=== PATIENT | male | born 1970 | race Two or more races ===

== ENCOUNTER 2025-10-05 07:04 | Inpatient (IN) | payer MEDICAID, OTHER ==
[~2025-10-05] VITALS: Ht 162.6 cm; Wt 81.1 kg
--- NOTE | 2025-10-05 07:37 | ED.PDOC ---
GI ASSESSMENT HPI Comments 54 year old male presents to the ED with a chief compliant of abdominal pain onset 1 day. Patient states he has been experiencing epigastric pain for the past day as well as nausea. Patient had dental implants placed 8 days ago, since then has only been eating soups, bland meals. He took Tylenol for pain yesterday with no improvement of symptoms. Last bowel movement was yesterday around noon. Denies diarrhea, constipation, fever, chills, dysuria, hematuria, hematemesis, fatigue, headache, melena, blood in stool. No other symptoms or modfiyng factors present at this ti Chief Complaint: Abdominal Pain Time Seen by MD: 07:30 Reviewed Notes: Medications, Allergies Allergies: Coded Allergies: NO KNOWN ALLERGIES (Unverified , 10/05/25) Information Source: Patient, Spouse Mode of Arrival: Ambulatory Timing: Days Duration: Since onset Prehospital treatment: Pain Meds (Tylenol) Quality: Sharp Vomitus: None Severity: Moderate Recent: Other (dental work 8 days ago) Recent Hx of: None Pain Location: Epigastric Modifying Factors: Nothing Associated sign and symptoms: Nausea, Abdominal Pain Past Medical History PAST MEDICAL HISTORY: Denies Surgical History: Denies all surgeries Family History Family History: Reviewed,noncontributory to illness, No family hx of Cancer, No family hx of DM, No family hx of Heart farooq, No family hx of HTN, No family hx ofKidney farooq, No family hx of Liver farooq, No family hx of Lung farooq, No family hx of Stroke Social History Smoker: Non-Smoker Alcohol: Denies ETOH Use Drugs: Denies Drug Use Lives In: Home Constitutional: denies: chills, diaphoresis, fatigue, fever, malaise, sweats, weakness, others EENTM: denies: blurred vision, double vision, ear bleeding, ear discharge, ear drainage, ear pain, ear ringing, eye pain, eye redness, hearing loss, mouth pain, mouth swelling, nasal discharge, nose bleeding, nose congestion, nose pain, photophobia, tearing, throat pain, throat swelling, voice changes, others Respiratory: denies: cough, hemoptysis, orthopnea, SOB at rest, shortness of breath, SOB with excertion, stridor, wheezing, others Cardiovascular: denies: chest pain, dizzy spells, diaphoresis, Dyspnea on exertion, edema, irregular heart beat, left arm pain, lightheadedness, palpitations, PND, syncope, others Gastrointestinal: reports: abdominal pain, nausea; denies: abdomen distended, blood streaked bowels, constipated, diarrhea, dysphagia, difficulty swallowing, hematemesis, melena, poor appetite, poor fluid intake, rectal bleeding, rectal pain, vomiting, others Genitourinary: denies: burning, dysuria, flank pain, frequency, hematuria, incontinence, penile discharge, penile sore, pain, testicle pain, testicle swelling, urgency, others Neurological: denies: dizziness, fainting, headache, left sided numbness, left sided weakness, numbness, paresthesia, pre-existing deficit, right sided numbness, right sided weakness, seizure, speech problems, tingling, tremors, weakness, others Musculoskeletal: denies: back pain, gout, joint pain, joint swelling, muscle pain, muscle stiffness, neck pain, others Integumetry: denies: bruises, change in color, change in hair/nails, dryness, laceration, lesions, lumps, rash, wounds, others Allergic/Immunocompromised: denies: Difficulty Healing, Frequent Infections, Hives, Itching, others Hematologic/Lymphatic: denies: anemia, blood clots, easy bleeding, easy bruising, swollen glands, others Endocrine: denies: excessive hunger, excessive sweating, excessive thirst, excessive urination, flushing, intolerance to cold, intolerance to heat, unexplained weight gain, unexplained weight loss, others Psychiatric: denies: anxiety, bipolar disorder, depression, hopeless, panic disorder, schizophrenia, sleepless, suicidal, others All Other Systems: Reviewed and Negative Physical Exam General Appearance: Normal, Other (appears uncomfortable) HEENT: Normal ENT Inspection, Pharynx Normal, TMs Normal Neck: Full Range of Motion, Non-Tender, Normal, Normal Inspection Respiratory: Chest Non-Tender, Lungs Clear, No Accessory Muscle Use, No Respiratory Distress, Normal Breath Sounds Cardiovascular: No Edema, No JVD, No Murmur, No Gallop, Normal Peripheral Pulses, Regular Rate/Rhythm Breast Exam: Deferred Gastrointestinal: No Organomegaly, Non Tender, No Pulsatile Mass, Normal Bowel Sounds, Soft Genitalia: Deferred Pelvic: Deferred Rectal: Deferred Extremities: No calf tenderness, Normal capillary refill, Normal inspection, Normal range of motion, Non-tender, No pedal edema Musculoskeletal : Apperance: Normal Neurologic: Alert, 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 Was a procedure done?: No GI differential Dx Differential Diagnosis: Cholecystitis, Gastritis/PUD, Gastroenteritis, Dehydration, Electrolyte Imbalance, Bacterial, Viral X-Ray, Labs, Meds, VS Vital Signs Date Time Temp Pulse Resp B/P (MAP) Pulse Ox O2 Delivery O2 Flow Rate FiO2 10/05/25 08:48 98.0 79 16 140/77 (98) 97 98.0 10/05/25 08:48 Room Air* 0 21 10/05/25 08:42 79 16 140/77 10/05/25 07:06 97.2 91 20 125/77 99 97.2 Lab Test 10/05/25 07:40 Range/Units White Blood Count 18.2 H 4.4-10.8 10^3/uL Red Blood Count 5.08 4.5-5.90 10^6/uL Hemoglobin 16.3 13.5-17.5 g/dL Hematocrit 47.2 41.0-53.0 % Mean Corpuscular Volume 93.0 80.0-100.0 fL Mean Corpuscular Hemoglobin 32.2 H 28.0-32.0 pg Mean Corpuscular Hemoglobin Concent 34.6 32.0-36.0 g/dL Red Cell Distribution Width 12.4 11.8-14.3 % Platelet Count 275 140-450 10^3/uL Mean Platelet Volume 6.7 L 6.9-10.8 fL Neutrophils (%) (Auto) 89.8 H 37.0-80.0 % Lymphocytes (%) (Auto) 4.2 L 10.0-50.0 % Monocytes (%) (Auto) 5.8 0.0-12.0 % Eosinophils (%) (Auto) 0.0 0.0-7.0 % Basophils (%) (Auto) 0.2 0.0-2.0 % Neutrophils # (Auto) 16.4 H 1.6-8.6 10 ^3/uL Lymphocytes # (Auto) 0.8 0.4-5.4 10 ^3/uL Monocytes # (Auto) 1.1 0-1.3 10 ^3/uL Eosinophils # (Auto) 0 0-0.8 10 ^3/uL Basophils # (Auto) 0 0-0.2 10 ^3/uL Nucleated Red Blood Cells 0.0 % Sodium Level 139 136-145 mmol/L Potassium Level 4.2 3.5-5.1 mmol/L Chloride Level 102 98-107 mmol/L Carbon Dioxide Level 26 20-31 mmol/L Anion Gap 11 5-15 Blood Urea Nitrogen 11 9-23 mg/dL Creatinine 1.02 0.700-1.30 mg/dL Glomerular Filtration Rate Calc 88 >90 mL/min BUN/Creatinine Ratio 10.8 10.0-20.0 Serum Glucose 136 H 74-106 mg/dL Calcium Level 9.8 8.7-10.4 mg/dL Total Bilirubin 1.1 H 0.2-1.0 mg/dL Aspartate Amino Transferase (AST) 23 13-40 U/L Alanine Aminotransferase (ALT) 28 7-40 U/L Alkaline Phosphatase 80 46-116 U/L Total Protein 7.9 5.7-8.2 g/dL Albumin 4.8 3.2-4.8 g/dL Lipase 34 12-53 U/L Current Medications Medications (Trade) Dose Ordered Sig/Tao Route Start Time Stop Time Status Last Admin Sodium Chloride 1,000 ml @ 1,000 mls/hr Q1H ONCE IV 10/05/25 07:45 10/05/25 08:44 DC 10/05/25 08:30 Morphine Sulfate 4 mg ONCE ONCE IV 10/05/25 07:45 10/05/25 07:46 DC 10/05/25 08:42 Pantoprazole Sodium (Protonix) 40 mg ONCE ONCE IV 10/05/25 07:45 10/05/25 07:46 DC 10/05/25 08:41 Ondansetron HCl (Zofran) 4 mg ONCE ONCE IV 10/05/25 07:45 10/05/25 07:46 DC 10/05/25 08:[address] [address] Ph: [phone] DIAGNOSTIC IMAGING Diagnostic Imaging Report : [id number] Signed PATIENT: STUART WOOTENACCT: [id number] UNIT: [id number] : 1970 LOC: ER ROOM / BED: / AGE / SEX: 54 / M ADM STATUS: REG ER SERVICE [id number] ORDERING PHYSICIAN: MICHAELA KINNEY MD PROCEDURE(s): ABPLIV - CT AB PEL WITH IV CON ONLY REASON: abdominal pain ORDER NUMBER(s): [id number], ACCESSION NUMBER(s): [id number] CLINICAL INFORMATION: 54 years old, Male; abdominal pain. TECHNIQUE: Axial CT images of the abdomen and pelvis were obtained after the uneventful administration of 100 mL Omnipaque 300 IV contrast. Coronal and sagittal reformatted images were obtained, reviewed, and stored. All CT scans at this medical facility are performed using dose modulation techniques as appropriate to a performed exam including the following: Automated exposure control was utilized; adjustment of the MA and/or KV according to patient size; and use of iterative reconstruction technique. CTDIvol = 8.39 mGy DLP = 525.65 mGy-cm COMPARISON: None FINDINGS: Lung bases: Respiratory motion artifact limits evaluation. Atelectasis in the lung bases. Liver: Hepatic steatosis. Biliary: Gallbladder is distended. No calcified gallstones visualized on CT. Spleen: Unremarkable. Pancreas: Unremarkable. No inflammatory changes, ductal dilatation, or mass identified. Adrenal glands: Unremarkable. No mass. Kidneys: No hydronephrosis or mass. Aorta/Vascular: Scattered atherosclerotic calcification. No abdominal aortic aneurysm. Lymph Nodes: No mass or lymphadenopathy. Bowel/mesentery: No small bowel obstruction. No free air or free fluid. Appendix is visualized and appears unremarkable. Scattered small colonic diverticula without adjacent inflammatory changes to suggest diverticulitis. Pelvic organs: Grossly unremarkable. Bladder: Unremarkable. No mass. Abdominal wall: No mass or hernia. Bones: No acute fracture or focal intraosseous lesion. IMPRESSION: 1. Distended gallbladder. No definite calcified gallstones visualized on CT. Correlate with clinical findings. If clinically indicated, ultrasound could be obtained. 2. Hepatic steatosis. 3. Scattered colonic diverticula without adjacent inflammatory changes to suggest diverticulitis. 4. Additional findings as described above. ATED BY: BE DE LEON DO DICTATED DATE/TIME: 10/05/25936 SIGNED BY: BE DE LEON DO SIGNED DATE/TIME: 10/05/25936 CC: Time of 1ST Reevaluation: 08:00 Reevaluation 1ST: Unchanged Patient Education/Counseling: Diagnosis, Treatment, Prognosis Family Education/Counseling: Diagnosis, Treatment, Prognosis SEPSIS Sepsis Screen Date sepsis recognized/suspect: Oct 05, 2025 Time Sepsis recognized/suspect: 708 Recent Procedure: No On Antibiotic Therapy: No Respiratory Rate >20: No Heart Rate >90: No Temp<36 C (96.8 F) or >38.3 C: No SBP <90 or MAP <65 mmHG: No New Acute Mental Status Change: No Is the patient on CPAP, BIPAP,: No Physician Orders Urinalysis (10/05/25 07:19) Ct Ab Pel With Iv Con Only (10/05/25 07:33) Accucheck (10/05/25 10:07) Lactated Ringer's (10/05/25 10:15) Blood Culture (10/05/25 10:07) Lactic Acid W/ Reflex Order (10/05/25 12:00) Lactic Acid W/ Reflex Order (10/05/25 14:00) Cefepime 1gm/50ml (Maxipime 1gm/50ml) (10/05/25 10:07) Notify Md If Map <65 Or Bp<90 (10/05/25 10:07) If Map<65 Start Vasopressor (10/05/25 10:07) Sepsis Reassesment After Fluid (10/05/25 11:07) Vital Signs Date Time Temp Pulse Resp B/P (MAP) Pulse Ox O2 Delivery O2 Flow Rate FiO2 10/05/25 08:48 98.0 79 16 140/77 (98) 97 98.0 10/05/25 08:48 Room Air* 0 21 10/05/25 08:42 79 16 140/77 10/05/25 07:06 97.2 91 20 125/77 99 97.2 Laboratory Tests Test 10/05/25 07:40 White Blood Count 18.2 10^3/uL (4.4-10.8) H Medications Medications Dose Ordered Sig/Tao Route Start Time Stop Time Status Last Admin Dose Admin Morphine Sulfate 4 mg ONCE ONCE IV 10/05/25 07:45 10/05/25 07:46 DC 10/05/25 08:42 Ondansetron HCl 4 mg ONCE ONCE IV 10/05/25 07:45 10/05/25 07:46 DC 10/05/25 08:42 Pantoprazole Sodium 40 mg ONCE ONCE IV 10/05/25 07:45 10/05/25 07:46 DC 10/05/25 08:41 Sodium Chloride 1,000 ml @ 1,000 mls/hr Q1H ONCE IV 10/05/25 07:45 10/05/25 08:44 DC 10/05/25 08:30 Departure 1 Departure Time of Disposition: 10:17 (Patient presented with abdominal pain that was concerning for possible appendicits, gastritis, cholecystitis, colitis, gastroenteritis, sbo, or orther possible surgical emergency. Data: 1. I ordered and reviewed the result of at least 3 labs including a CBC, BMP, and Urinalysis. 2. I independently interpreted the following tests: CT Abdomen and Pelvis is concerning for acute cholecystitis .Risk:This patient has a high risk of morbidity due to further diagnostic testing or treatment and may suffer from an acute abdominal process disorder. Workup reveals a suspected sepsis and suspected acute cholecystitis and patient should be admitted for further workup. and possible expert consultation. ) Impression: Primary Impression: Suspected sepsis Additional Impression: Cholecystitis Disposition: ADMITTED INPATIENT Admit to: Tele Condition: Guarded Critical Care Note Critical Care Time?: Yes Critical care comment: Suspected sepsis Authorized and Performed by: Michaela Kinney MD Total critical care time: Approximately 39 minutes Due to a high probability of clinically significant, life threatening deterioration, the patient required my highest level of preparedness to interv willy emergently and I personally spent this critical care time directly and personally managing the patient. This critical care time included obtaining a history; examining the patient; pulse oximetry; ordering and review of studies; arranging urgent treatment with development of a management plan; evaluation of patient's response to treatment; frequent reassessment; and, discussions with other providers. This critical care time was performed to assess and manage the high probability of imminent, life-threatening deterioration that could result in multi-organ failure. It was exclusive of separately billable procedures and treating other patients and teaching time. Please see my other sections and the rest of the note for further information on patient assessment and treatment. Stability Stability form required: No Heart Score Heart Score: Heart Score Response (Comments) Value History N/A 0 EKG N/A 0 Age N/A 0 Risk Factors N/A 0 Troponin N/A 0 Total 0 I personally scribed for MICHAELA KINNEY MD ([email or web address]) on 10/05/25 at 07:37. Natalia ctronically submitted by Aisha Srivastava ([email or web address]). I personally scribed for MICHAELA KINNEY MD ([email or web address]) on 10/05/25 at 09:48. Electronically submitted by Aisha Srivastava ([email or web address]). MICHAELA KINNEY MD Oct 05, 2025 07:37
[2025-10-05 07:55] LABS: Hematocrit 47.2 % (41.0-53.0); Hemoglobin 16.3 g/dL (13.5-17.5); Mean Corpuscular Hemoglobin 32.2 pg (28.0-32.0); Mean Corpuscular Volume 93.0 fL (80.0-100.0); Nucleated Red Blood Cells % 0.0 %
[2025-10-05 08:12] LABS: Alanine Aminotransferase 28 U/L (7-40); Albumin 4.8 g/dL (3.2-4.8); Alkaline Phosphatase 80 U/L (46-116); Anion Gap 11 (5-15); BUN/Creatinine Ratio 10.8 (10.0-20.0); Bilirubin, Total 1.1 mg/dL (0.2-1.0); Blood Urea Nitrogen 11 mg/dL (9-23); Calcium 9.8 mg/dL (8.7-10.4); Carbon Dioxide 26 mmol/L (20-31); Chloride 102 mmol/L (98-107); Glucose 136 mg/dL (74-106); Potassium 4.2 mmol/L (3.5-5.1); Sodium 139 mmol/L (136-145); Total Protein 7.9 g/dL (5.7-8.2)
[2025-10-05] MEDS: IOHEXOL 300 MG/ML 100ML BOTTLE IJ ONE (08:16)
[2025-10-05] MEDS: SODIUM CHLORIDE 0.9% 1,000 ML IV ONE (08:30)
[2025-10-05] MEDS: PANTOPRAZOLE 40 MG/10 ML VIAL INJ IV ONE (08:41)
[2025-10-05] MEDS: ONDANSETRON HCL 4 MG/2 ML VIAL IV ONE (08:42)
[2025-10-05] MEDS: MORPHINE SULFATE 4 MG/ML SYR/VIAL IV ONE (08:42)
[2025-10-05 09:16] LABS: Lipase 34 U/L (12-53)
--- NOTE | 2025-10-05 09:39 | DVH ---
CLINICAL INFORMATION: 54 years old, Male; abdominal pain. TECHNIQUE: Axial CT images of the abdomen and pelvis were obtained after the uneventful administration of 100 mL Omnipaque 300 IV contrast. Coronal and sagittal reformatted images were obtained, reviewed, and stored. All CT scans at this medical facility are performed using dose modulation techniques as appropriate to a performed exam including the following: Automated exposure control was utilized; adjustment of the MA and/or KV according to patient size; and use of iterative reconstruction technique. CTDIvol = 8.39 mGy DLP = 525.65 mGy-cm COMPARISON: None FINDINGS: Lung bases: Respiratory motion artifact limits evaluation. Atelectasis in the lung bases. Liver: Hepatic steatosis. Biliary: Gallbladder is distended. No calcified gallstones visualized on CT. Spleen: Unremarkable. Pancreas: Unremarkable. No inflammatory changes, ductal dilatation, or mass identified. Adrenal glands: Unremarkable. No mass. Kidneys: No hydronephrosis or mass. Aorta/Vascular: Scattered atherosclerotic calcification. No abdominal aortic aneurysm. Lymph Nodes: No mass or lymphadenopathy. Bowel/mesentery: No small bowel obstruction. No free air or free fluid. Appendix is visualized and appears unremarkable. Scattered small colonic diverticula without adjacent inflammatory changes to suggest diverticulitis. Pelvic organs: Grossly unremarkable. Bladder: Unremarkable. No mass. Abdominal wall: No mass or hernia. Bones: No acute fracture or focal intraosseous lesion. IMPRESSION: 1. Distended gallbladder. No definite calcified gallstones visualized on CT. Correlate with clinical findings. If clinically indicated, ultrasound could be obtained. 2. Hepatic steatosis. 3. Scattered colonic diverticula without adjacent inflammatory changes to suggest diverticulitis. 4. Additional findings as described above.
[2025-10-05] MEDS: LACTATED RINGER'S 1,800 ML IV ONE (10:55)
[2025-10-05] MEDS: CEFEPIME 1GM/50ML 50 ML IV STA (11:35)
--- NOTE | 2025-10-05 11:58 | DVHHP2 ---
History of Present Illness Reason for Visit: Abdominal pain History of Present Illness Bert Schmitt is a 54-year-old male with no significant past medical history, who came to the hospital for abdominal pain. Patient states his pain began yesterday about mid day. States he has had chills, fever, and dizziness. Denies any vomiting, or diarrhea. Past Surgical History: Other (Dental implants 8 dyas ago) Smoke: No ALCOHOL: none Drugs: None Lives: with Family Domestic Violence: Neg Review of Systems Constitutional: Yes: Fever, Chills; No: Sweats, Weakness, Malaise, Other Eyes: No: Pain, Vision change, Conjunctivae inflammation, Eyelid inflammation, Other, Redness ENT: No: Ear pain, Ear discharge, Nose pain, Nose discharge, Nose congestion, Mouth pain, Mouth swelling, Throat pain, Throat swelling, Other Respiratory: No: Cough, Dry, Shortness of breath, SOB with excertion, Wheezing, Hemoptysis, Pleuritic Pain, Sputum, Wheezing, Other Cardiovascular: No: Chest Pain, Palpitations, Orthopnea, Paroxysmal Noc. Dyspnea, Edema, Lt Headedness, Other Gastrointestinal: Nausea, Abdominal Pain (RUQ); No: Vomiting, Diarrhea, Constipation, Melena, Hematochezia, Other Genitourinary: No Dysuria, No Frequency, No Incontinence, No Hematuria, No Retention, No Other Musculoskeletal: No: other, neck pain, shoulder pain, arm pain, back pain, hand pain, leg pain, foot pain Skin: No: Rash, Lesions, Jaundice, Bruising, Other Neurological: No: Weakness, Numbness, Incoordination, Change in speech, Confusion, Seizures, Other Allergies: Coded Allergies: NO KNOWN ALLERGIES (Unverified , 10/05/25) Medications Current Medications Medications Dose Ordered Sig/Tao Route Start Time Stop Time Status Last Admin Dose Admin Cefepime HCl 50 ml @ 12.5 mls/hr ONCE STAT IV 10/05/25 10:07 10/05/25 14:06 10/05/25 11:35 12.5 MLS/HR Sodium Chloride 1,000 ml @ 120 mls/hr Q8H20M IV 10/05/25 11:15 UNV Acetaminophen/ Hydrocodone Bitart 1 tab Q4HP PRN PO 10/05/25 11:15 UNV Ondansetron HCl 4 mg Q4HP PRN IV 10/05/25 11:15 UNV Docusate Sodium 100 mg BID PO 10/05/25 22:00 UNV Acetaminophen 650 mg Q6HP PRN PO 10/05/25 11:15 UNV Morphine Sulfate 2 mg Q4HPRN PRN IV 10/05/25 11:15 UNV Exam Vital Signs Vital Signs Date Time Temp Pulse Resp B/P (MAP) Pulse Ox O2 Delivery O2 Flow Rate FiO2 10/05/25 08:48 98.0 79 16 140/77 (98) 97 98.0 10/05/25 08:48 Room Air* 0 21 General Appearance: Alert, Oriented X3 HEENT: Atraumatic, PERRLA Respiratory: Clear to auscultation, Normal air movement Cardiovascular: Regular rate, Normal S1, Normal S2 Abdominal: Normal bowel sounds, Soft, Other (RUQ tenderness) Extremities: No clubbing, No cyanosis, No edema, Normal pulses, No tenderness/swelling Skin: No rashes, No breakdown, No significant lesion Neuro: Normal gait, Normal speech, Strength at 5/5 X4 ext Psych/Mental Status: Mental status NL, Mood NL Labs/Xrays Labs Test 10/05/25 10:25 10/05/25 07:40 Range/Units Lactic Acid Level 1.0 0.4-2.0 mmol/L White Blood Count 18.2 H 4.4-10.8 10^3/uL Red Blood Count 5.08 4.5-5.90 10^6/uL Hemoglobin 16.3 13.5-17.5 g/dL Hematocrit 47.2 41.0-53.0 % Mean Corpuscular Volume 93.0 80.0-100.0 fL Mean Corpuscular Hemoglobin 32.2 H 28.0-32.0 pg Mean Corpuscular Hemoglobin Concent 34.6 32.0-36.0 g/dL Red Cell Distribution Width 12.4 11.8-14.3 % Platelet Count 275 140-450 10^3/uL Mean Platelet Volume 6.7 L 6.9-10.8 fL Neutrophils (%) (Auto) 89.8 H 37.0-80.0 % Lymphocytes (%) (Auto) 4.2 L 10.0-50.0 % Monocytes (%) (Auto) 5.8 0.0-12.0 % Eosinophils (%) (Auto) 0.0 0.0-7.0 % Basophils (%) (Auto) 0.2 0.0-2.0 % Neutrophils # (Auto) 16.4 H 1.6-8.6 10 ^3/uL Lymphocytes # (Auto) 0.8 0.4-5.4 10 ^3/uL Monocytes # (Auto) 1.1 0-1.3 10 ^3/uL Eosinophils # (Auto) 0 0-0.8 10 ^3/uL Basophils # (Auto) 0 0-0.2 10 ^3/uL Nucleated Red Blood Cells 0.0 % Sodium Level 139 136-145 mmol/L Potassium Level 4.2 3.5-5.1 mmol/L Chloride Level 102 98-107 mmol/L Carbon Dioxide Level 26 20-31 mmol/L Anion Gap 11 5-15 Blood Urea Nitrogen 11 9-23 mg/dL Creatinine 1.02 0.700-1.30 mg/dL Glomerular Filtration Rate Calc 88 >90 mL/min BUN/Creatinine Ratio 10.8 10.0-20.0 Serum Glucose 136 H 74-106 mg/dL Calcium Level 9.8 8.7-10.4 mg/dL Total Bilirubin 1.1 H 0.2-1.0 mg/dL Aspartate Amino Transferase (AST) 23 13-40 U/L Alanine Aminotransferase (ALT) 28 7-40 U/L Alkaline Phosphatase 80 46-116 U/L Total Protein 7.9 5.7-8.2 g/dL Albumin 4.8 3.2-4.8 g/dL Lipase 34 12-53 U/L TECHNIQUE: Axial CT images of the abdomen and pelvis were obtained FINDINGS: Lung bases: Respiratory motion artifact limits evaluation. Atelectasis in the lung bases. Liver: Hepatic steatosis. Biliary: Gallbladder is distended. No calcified gallstones visualized on CT. Spleen: Unremarkable. Pancreas: Unremarkable. No inflammatory changes, ductal dilatation, or mass identified. Adrenal glands: Unremarkable. No mass. Kidneys: No hydronephrosis or mass. Aorta/Vascular: Scattered atherosclerotic calcification. No abdominal aortic aneurysm. Lymph Nodes: No mass or lymphadenopathy. Bowel/mesentery: No small bowel obstruction. No free air or free fluid. Appendix is visualized and appears unremarkable. Scattered small colonic diverticula without adjacent inflammatory changes to suggest diverticulitis. Pelvic organs: Grossly unremarkable. Bladder: Unremarkable. No mass. Abdominal wall: No mass or hernia. Bones: No acute fracture or focal intraosseous lesion. IMPRESSION: 1. Distended gallbladder. No definite calcified gallstones visualized on CT. Correlate with clinical findings. If clinically indicated, ultrasound could be obtained. 2. Hepatic steatosis. 3. Scattered colonic diverticula without adjacent inflammatory changes to suggest diverticulitis. 4. Additional findings as described above. SEPSIS Sepsis Screen Date sepsis recognized/suspect: Oct 05, 2025 Time Sepsis recognized/suspect: 847 Recent Procedure: No On Antibiotic Therapy: No Respiratory Rate >20: No Heart Rate >90: No Temp<36 C (96.8 F) or >38.3 C: No SBP <90 or MAP <65 mmHG: No New Acute Mental Status Change: No Is the patient on CPAP, BIPAP,: No Physician Orders Urinalysis (10/05/25 07:19) Ct Ab Pel With Iv Con Only (10/05/25 07:33) Accucheck (10/05/25 10:07) Blood Culture (10/05/25 10:07) Cefepime 1gm/50ml (Maxipime 1gm/50ml) (10/05/25 10:07) Notify Md If Map <65 Or Bp<90 (10/05/25 10:07) If Map<65 Start Vasopressor (10/05/25 10:07) Sepsis Reassesment After Fluid (10/05/25 11:07) Admit (10/05/25 11:10) Code Status (10/05/25 11:10) Sodium Chloride 0.9% (10/05/25 11:15) Hydrocodone-Acet 5/325mg Tab ([place] 5/32 (10/05/25 11:15) Ondansetron Hcl (Zofran) (10/05/25 11:15) Docusate Sodium Capsule (Colace Capsule) (10/05/25 22:00) Complete Blood Count (10/06/25 04:00) Comprehensive Metabolic Panel (10/06/25 04:00) Npo (Nothing By Mouth) Diet (10/05/25 Lunch) Condition: Serious (10/05/25 11:10) Acetaminophen Tablet (Tylenol Tablet) (10/05/25 11:15) Morphine Sulfate Injection (10/05/25 11:15) Vital Signs Date Time Temp Pulse Resp B/P (MAP) Pulse Ox O2 Delivery O2 Flow Rate FiO2 10/05/25 08:48 98.0 79 16 140/77 (98) 97 98.0 10/05/25 08:48 Room Air* 0 21 10/05/25 08:42 79 16 140/77 10/05/25 07:06 97.2 91 20 125/77 99 97.2 Laboratory Tests Test 10/05/25 07:40 10/05/25 10:25 White Blood Count 18.2 10^3/uL (4.4-10.8) H Lactic Acid Level 1.0 mmol/L (0.4-2.0) Medications Medications Dose Ordered Sig/Tao Route Start Time Stop Time Status Last Admin Dose Admin Cefepime HCl 50 ml @ 12.5 mls/hr ONCE STAT IV 10/05/25 10:07 10/05/25 14:06 10/05/25 11:35 12.5 MLS/HR Lactated Ringer's 1,800 ml @ 1,800 mls/hr ONCE ONCE IV 10/05/25 10:15 10/05/25 11:14 DC 10/05/25 10:55 1,800 MLS/HR Morphine Sulfate 4 mg ONCE ONCE IV 10/05/25 07:45 10/05/25 07:46 DC 10/05/25 08:42 4 MG Ondansetron HCl 4 mg ONCE ONCE IV 10/05/25 07:45 10/05/25 07:46 DC 10/05/25 08:42 4 MG Pantoprazole Sodium 40 mg ONCE ONCE IV 10/05/25 07:45 10/05/25 07:46 DC 10/05/25 08:41 40 MG Sodium Chloride 1,000 ml @ 1,000 mls/hr Q1H ONCE IV 10/05/25 07:45 10/05/25 08:44 DC 10/05/25 08:30 1,000 MLS/HR Assessment/Plan Assessment/Plan Assessment: Cholecystitis, Possible sepsis, Hyperglycemia, Plan: Admit to Med-Surg, Surgical consult, NPO, PT/PTT, Chest X-ray, Gallbladder ultrasound, IV hydration, IV antibiotics, EKG, Pain management, Antiemetics, Plan discussed with: Patient My Orders Orders - IZAIAH COMER Procedure Category Date Status Time Admit ADMIT 10/05/25 Transmitted 11:10 Code Status CODE 10/05/25 Transmitted 11:10 Sodium Chloride 0.9% PHA 10/05/25 Logged 11:15 Hydrocodone-Acet PHA 10/05/25 Logged 5/325mg Tab ([place] 11:15 Ondansetron Hcl PHA 10/05/25 Logged (Zofran) 11:15 Docusate Sodium PHA 10/05/25 Logged Capsule (Colace 22:00 Complete Blood Count LAB 10/06/25 Verified 04:00 Comprehensive LAB 10/06/25 Verified Metabolic Panel 04:00 Npo (Nothing By DIET 10/05/25 Transmitted Mouth) Diet Lunch Condition: Serious MICHAEL 10/05/25 In Process 11:10 Acetaminophen Tablet PHA 10/05/25 Logged (Tylenol Tablet) 11:15 Morphine Sulfate PHA 10/05/25 Logged Injection 11:15 Date of Service: Oct 05, 2025 Billing Provider: IZAIAH COMER Common Visit Codes: [id number] INP/OBS CARE (HIGH) IZAIAH COMER Oct 05, 2025 11:58
--- NOTE | 2025-10-05 12:30 | DVH ---
CHEST RADIOGRAPH Indication: Pre-Op Technique: Single frontal view of the chest was obtained Comparison: None FINDINGS: Lines and Tubes: None Lungs: No focal consolidation. Bibasilar areas of atelectasis or chronic disease. Pleura: No effusion. No pneumothorax. Cardiomediastinal contours: Unremarkable Bones: No acute osseous abnormality. IMPRESSION: 1. Bibasilar areas of atelectasis or chronic pulmonary disease.
[2025-10-05 13:52] LABS: INR 1.06 (0.9-1.15); Partial Thromboplastin Time 26.5 SEC (24.5-34.5); Prothrombin Time 11.2 sec (9.3-11.8)
[2025-10-05] MEDS: SODIUM CHLORIDE 0.9% 1,000 ML IV SCH (13:59)
--- NOTE | 2025-10-05 15:33 | DVH ---
Technique: Real-time ultrasound imaging of the abdomen was performed with grayscale and color Doppler. Indication: acute cholecystitis Comparison: 10/05/2025 Findings: Liver measures 15.2 cm. It is increased in echogenicity and echotexture without focal mass. Portal vein is normal in caliber and demonstrates normal hepatopetal flow. Gallbladder demonstrates distentionm and wall thickening to 4 mm. Cholelithiasis and probable sludge. The common bile duct is nonvisualized. No intrahepatic duct dilatation seen. The right kidney measures 9.5 cm. There is no hydronephrosis or sonographic evidence of nephrolithiasis. The visualized portion of the pancreas is unremarkable. Impression: Gallbladder distention with cholelithiasis and probable sludge as well as gallbladder wall thickening to 4 mm. Findings may reflect cholecystitis. Recommend HIDA scan to evaluate. Echogenic liver which can be seen with hepatic steatosis, cirrhosis. CBD nonvisualized.
[2025-10-05] MEDS: MORPHINE SULFATE INJ 2 MG/ml SYRG IV PRN (16:26)
[2025-10-05] MEDS: ONDANSETRON HCL 4 MG/2 ML VIAL IV PRN (16:26)
[2025-10-05] MEDS: ACETAMINOPHEN 325 MG TAB PO PRN (16:26)
[2025-10-05 18:40] VITALS: BP 143/76; PULSE 103; RESP 18; TEMP 98.4; O2SAT 94
[2025-10-05] MEDS: HYDROcodone-ACET 5/325MG TAB PO PRN (19:46)
[2025-10-05] MEDS ORDERED: IBUP-1455 PO (20:15)
[2025-10-05 21:00] VITALS: BP 148/78; PULSE 94; RESP 19; TEMP 99.4; O2SAT 92
[2025-10-05] MEDS: DOCUSATE SOD 100 MG CAP PO SCH (22:00)
[2025-10-06] VITALS (22 sets, daily range): BP systolic 115–145; BP diastolic 70–89; PULSE 96–117; RESP 12–26; TEMP 97.6–98.5; O2SAT 92–94
[2025-10-06 01:27] LABS: Urine Protein, UAD Negative (Negative)
[2025-10-06 04:08] LABS: Hematocrit 42.9 % (41.0-53.0); Hemoglobin 15.1 g/dL (13.5-17.5); Mean Corpuscular Hemoglobin 32.8 pg (28.0-32.0); Mean Corpuscular Volume 93.5 fL (80.0-100.0); Nucleated Red Blood Cells % 0.0 %
[2025-10-06 04:21] LABS: Alanine Aminotransferase 23 U/L (7-40); Alkaline Phosphatase 78 U/L (46-116); Calcium 9.5 mg/dL (8.7-10.4); Carbon Dioxide 27 mmol/L (20-31); Chloride 103 mmol/L (98-107)
[2025-10-06 04:22] LABS: Albumin 4.3 g/dL (3.2-4.8); Anion Gap 8 (5-15); BUN/Creatinine Ratio 9.8 (10.0-20.0); Potassium 4.1 mmol/L (3.5-5.1); Sodium 138 mmol/L (136-145); Total Protein 7.2 g/dL (5.7-8.2)
[2025-10-06 04:29] LABS: Bilirubin, Total 1.2 mg/dL (0.2-1.0); Blood Urea Nitrogen 8 mg/dL (9-23); Glucose 113 mg/dL (74-106)
[2025-10-06] MEDS: ceFAZolin 2 GM/D5W50ml 50 ML IV ONE (07:07)
--- NOTE | 2025-10-06 07:24 | DVHINCON2 ---
Date of service: Oct 06, 2025 Reason for Consultation right upper quadrant pain, acute cholecystitis History of Present Illness HPI 54-year-old male presented to the ER for abdominal pain. Patient states his pain began 2 days ago epigastric and right upper quadrant. Pain is sharp 10/10 associated with nausea. Home Meds Reported Medications Ibuprofen Micronized (Ibuprofen) 800 Mg Tab, 1 TAB PO Q8HPRN PRN for pain 10/05/25 Chief Complaint of Abdominal/F: Abdominal pain, Nausea Location of Abdominal Onset: RUQ Past Medical History Cardiac: No pertinent Hx Pulmonary: No pertinent Hx Central Nervous System: No pertinent Hx GI: No pertinent Hx Hemotology/Oncology: No pertinent Hx Hepatobiliary: No pertinent Hx Psychiatric: No pertinent Hx Musculoskeletal: No pertinent Hx Rheumotologic: No pertinent Hx Infectious Disease: No peritnent Hx ENT: No pertinent Hx Renal/: No pertinent Hx Endocrine: No pertinent Hx Dermatology: No pertinent Hx Past Surgical History: No pertinent Hx Family History: No pertinent Hx Patient Family History: Hypertension G8 MOTHER Smoker: Positive, Other (stopped two weeks ago ) Alocohol: None (stopped two weeks ago), Occassional Drugs: None Lives with: With family Review of Systems Constitutional: No symptom reported Ears, Nose, & Throat: No symptom reported Eyes: No symptom reported Pulmonary/Respiratory: No symptom reported Cardiovascular: No symptom reported Gastrointestinal: Nausea, Abdominal Pain Genitourinary: No symptom reported Musculoskeletal: No symptom reported Skin: No symptom reported Psychiatric: No symptom reported Endocrine: No symptom reported Hemotologic/Lymphatic: No symptom reported H&P Exam Vital Signs Vital Signs Date Time Temp Pulse Resp B/P (MAP) Pulse Ox O2 Delivery O2 Flow Rate FiO2 10/06/25 05:00 98.5 101 18 139/74 (95) 92 98.5 10/05/25 20:10 Room Air* 0 21 General Appeara: Well developed, Well nourished, Mild distress Head Exam: Normal inspection Neck Exam: Normal inspection Eye Exam: bilateral eye Normal inspection Pulmonary/Respiratory: Normal inspection Cardiovascular/Chest: Normal inspection, Regular rate Abdominal Exam: Normal bowel sounds, Soft Abdominal Pain Onset Location: RUQ Neuro/Mental St: Alert, Oriented Appearance: Appropriate appearance Eye contact/ Speech: Cooperative, Good eye contact Labs/Xrays Labs Test 10/06/25 03:47 10/06/25 00:55 10/05/25 12:58 10/05/25 10:25 Range/Units White Blood Count 29.1 H 4.4-10.8 10^3/uL Red Blood Count 4.59 4.5-5.90 10^6/uL Hemoglobin 15.1 13.5-17.5 g/dL Hematocrit 42.9 41.0-53.0 % Mean Corpuscular Volume 93.5 80.0-100.0 fL Mean Corpuscular Hemoglobin 32.8 H 28.0-32.0 pg Mean Corpuscular Hemoglobin Concent 35.1 32.0-36.0 g/dL Red Cell Distribution Width 12.5 11.8-14.3 % Platelet Count 232 140-450 10^3/uL Mean Platelet Volume 6.9 6.9-10.8 fL Neutrophils (%) (Auto) 90.7 H 37.0-80.0 % Lymphocytes (%) (Auto) 3.4 L 10.0-50.0 % Monocytes (%) (Auto) 5.8 0.0-12.0 % Eosinophils (%) (Auto) 0.0 0.0-7.0 % Basophils (%) (Auto) 0.1 0.0-2.0 % Neutrophils # (Auto) 26.4 H 1.6-8.6 10 ^3/uL Lymphocytes # (Auto) 1.0 0.4-5.4 10 ^3/uL Monocytes # (Auto) 1.7 H 0-1.3 10 ^3/uL Eosinophils # (Auto) 0 0-0.8 10 ^3/uL Basophils # (Auto) 0 0-0.2 10 ^3/uL Nucleated Red Blood Cells 0.0 % Sodium Level 138 136-145 mmol/L Potassium Level 4.1 3.5-5.1 mmol/L Chloride Level 103 98-107 mmol/L Carbon Dioxide Level 27 20-31 mmol/L Anion Gap 8 5-15 Blood Urea Nitrogen 8 L 9-23 mg/dL Creatinine 0.82 0.700-1.30 mg/dL Glomerular Filtration Rate Calc 105 >90 mL/min BUN/Creatinine Ratio 9.8 L 10.0-20.0 Serum Glucose 113 H 74-106 mg/dL Calcium Level 9.5 8.7-10.4 mg/dL Total Bilirubin 1.2 H 0.2-1.0 mg/dL Aspartate Amino Transferase (AST) 21 13-40 U/L Alanine Aminotransferase (ALT) 23 7-40 U/L Alkaline Phosphatase 78 46-116 U/L Total Protein 7.2 5.7-8.2 g/dL Albumin 4.3 3.2-4.8 g/dL Urine Color Light-yellow Yellow Urine Clarity Clear Clear Urine pH 6.5 5.0-9.0 Urine Specific [place] 1.015 1.001-1.035 Urine Protein Negative Negative Urine Ketones 1+ H Negative Urine Blood Negative Negative /uL Urine Nitrite Negative Negative Urine Bilirubin Negative Negative Urine Urobilinogen Normal Negative mg/dL Urine Leukocyte Esterase Negative Negative /uL Urine RBC 1 0 - 3 /hpf Urine Microscopic WBC 1 0-3 /HPF Urine Squamous Epithelial Cells None seen <5 /hpf Urine Bacteria None seen None Seen /hpf Urine Glucose Normal Normal mg/dL Prothrombin Time 11.2 9.3-11.8 sec Prothrombin Time INR 1.06 0.9-1.15 Activated Partial Thromboplast Time 26.5 24.5-34.5 SEC Lactic Acid Level 1.0 0.4-2.0 mmol/L Test 10/05/25 07:40 Range/Units Hemoglobin A1c 5.2 <5.7 % A1C Lipase 34 12-53 U/L Assessment/Plan Problem List: (1) Cholecystitis Plan patient complaint of right upper quadrant pain for the past two days associated with nausea , sharp 10/10 afebrile, elevated WBC positive Meneses sign, nausea Plan: laparoscopic possibly open cholecystectomy Plan discussed with: Patient, Other (Dr. 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
[2025-10-06] MEDS ORDERED: MEPERIDINE HCL (25 MG/ML) 1ML VIAL ONE (07:28)
[2025-10-06] MEDS ORDERED: fentaNYL CITRATE 100 MCG/2 ML VL ONE (07:28)
[2025-10-06] MEDS ORDERED: MIDAZOLAM HCL 2MG/2ML 2ml VIAL (1mg/ml) ONE (07:28)
[2025-10-06] MEDS ORDERED: ROCURONIUM 10MG/ML 10ML VIAL IV ONE (08:00)
[2025-10-06] MEDS ORDERED: ONDANSETRON HCL 4 MG/2 ML VIAL ONE (08:00)
[2025-10-06] MEDS: BUPIVACAINE HCL 0.25% P/F 10 ML VIAL ONE (08:15)
[2025-10-06] MEDS: LIDOCAINE W/ EPINEPHRINE 1% 20ML VIAL ONE (08:15)
[2025-10-06] MEDS ORDERED: ETOMIDATE (2MG/ML) 20ML VIAL IV ONE (08:17)
[2025-10-06] MEDS ORDERED: SUGAMMADEX 200mg/2ml Vial (100MG/ML) IV ONE ×2 (08:17→08:18)
[2025-10-06] MEDS ORDERED: ONDANSETRON HCL 4 MG/2 ML VIAL IV PRN ×2 (08:30→08:45)
--- NOTE | 2025-10-06 08:41 | ECG ---
[facility] Test Date: 2025-10-06 Test Time: 05:53:57 Pat Name: STUART WAKEFIELD Department: Room: 0297 Gender: M House Rn: : 1970 Requested By: KHUSHI SANDERS Order Number: [id number] Reading MD: Mike Gutierrez Measurements Intervals [place] Rate: 100 P: 57 [place]: 142 QRS: 83 QRSD: 98 T: 39 QT: 340 QTc: 438 Interpretive Statements Normal sinus rhythm Incomplete right bundle branch block Nonspecific T wave abnormality Electronically Signed On 10-06-2025 17:20:53 PST by Mike Gutierrez Please click the below link to view image of tracing.
[2025-10-06] MEDS ORDERED: MIDAZOLAM HCL 2MG/2ML 2ml VIAL (1mg/ml) IV PRN (08:45)
[2025-10-06] MEDS ORDERED: hydrALAZINE HCL 20 MG/ML VL IV PRN (08:45)
[2025-10-06] MEDS ORDERED: MORPHINE SULFATE 4 MG/ML SYR/VIAL IV PRN (08:45)
--- NOTE | 2025-10-06 09:06 | DVHOP ---
DATE OF SURGERY: 10/06/2025 PREOPERATIVE DIAGNOSES: Cholelithiasis, cholecystitis, sepsis. POSTOPERATIVE DIAGNOSES: Cholelithiasis, gangrenous cholecystitis, sepsis, morbid obesity. SURGEON: Canelo Camargo MD. FINANCIAL EXAMINER: Ye Bond NP. ANESTHESIA: General endotracheal. ANESTHESIOLOGIST: Dr. Medina. PROCEDURES: Laparoscopy, laparoscopic cholecystectomy DESCRIPTION OF PROCEDURE: Under general endotracheal anesthesia with the patient's skin prepped and draped, a supraumbilical incision was made and the Veress needle inserted into the peritoneal cavity by the hanging drop technique in order to establish pneumoperitoneum to 15 mmHg pressure by insufflation with carbon dioxide. With the abdomen fully distended, the needle was removed and replaced with a 5 mm trocar port through which a 0-degree viewing laparoscope was inserted and under direct vision, a 5 mm port was inserted through the right anterior axillary line at the level of the umbilicus and through the subxiphoid midline skin, a 10 mm port was inserted. Through the ports, instrumentation was introduced and laparoscopy was performed revealing morbid obesity, no evidence of unexpected pathology, severe gallbladder infection and inflammation with patchy areas of gangrene in the wall. The gallbladder was aspirated off bile and the bile was sent for cultures and sensitivities. The gallbladder was then subsequently placed on tension cephalad, elevated, and the cystic duct and cystic artery were dissected from much surrounding inflammatory and adipose tissue. The cystic duct and cystic artery were circumferentially dissected and skeletonized and traced into the hepatocystic triangle so as to minimize the potential for inadvertent injury to the common bile duct. Subsequent to this, the cystic duct and cystic artery were divided between metallic clips applied remote from the common duct, again attempting to protect the common duct from an inadvertent injury. The gallbladder was then resected from its intrahepatic position. The fully mobilized gallbladder was placed into a specimen extraction bag and removed from the peritoneal cavity. Subhepatic space was irrigated. Irrigant was aspirated. Hemostasis was meticulously accomplished. Due to the intrahepatic nature of the gallbladder, a subhepatic drain 10 mm Anibal-Alston was placed and exteriorized through the 5 mm port site on the right flank, secured with a 2-0 nylon suture. Following further assurance of complete hemostasis, the instrumentation had been withdrawn. Pneumoperitoneum was evacuated. The fascia was closed using #0 Vicryl. The wounds were approximated utilizing Monocryl sutures, Dermabond glue and Steri-Strips. The patient remained stable throughout the procedure and left the operating room following an accurate needle and sponge count. His , Angela, was thoroughly informed by phone. MD STONE Shay/MRAYLIN TID: [id number] RECEIPT: [id number]
[2025-10-06] MEDS: HYDROmorphone HCL 2 MG/ML VL/or syr IV PRN (09:36)
[2025-10-06] MEDS: HYDROmorphone HCL 2 MG/ML VL/or syr ONE (09:38)
[2025-10-06] MEDS: HYDROmorphone HCL 2 MG/ML VL/or syr IV ONE (09:39)
[2025-10-06] MEDS: PANTOPRAZOLE 40 MG/10 ML VIAL INJ IV SCH (09:51)
[2025-10-06] MEDS: D5W/SOD CHL 0.45%/KCL 20MEQ 1,000 ML IV SCH (10:19)
[2025-10-06] MEDS: MORPHINE SULFATE INJ 2 MG/ml SYRG IV PRN (18:11)
--- NOTE | 2025-10-06 18:26 | DVHPNRES ---
Progress Note Date Seen: Oct 06, 2025 Resident Creating Document: CALIXTO WILSON Medical Necessity Reason Pt with a Central, PICC or Fol: No Subjective Review of Systems This is a 54-year-old male with no past medical history presented to the hospital with complaints of abdominal pain since last Sunday. Patient complains of associated fever. He denies any vomiting. Patient complains that he has not had a bowel movement since Sunday. He rates the pain 8 on 10 in intensity, sharp in quality, radiating diffusely in the abdomen, increasing on moving. He says it is associated with shortness of Breath. PMHx: None as per patient PSHx: Dental procedure 8 days back Family history: Nonrelevant Social history: Denies smoking or illicit drug use, occasional alcohol use Home medication: Denies taking any home medications Allergic history: No known allergies General: patient denies fever, fatigue, weaknes, sweating, any recent changes in appetite and weight HEENT: No headaches, visiual changes, hearing loss, tinnitus, nasal congestion and discharge, and sore throat. Cardiovascular: Denies chest pain, palpitations, dyspnea on exertion, orthopnea, or claudication. Respiratory: No cough, and wheezing. Gastrointestinal: Complains of abdominal pain Genitourinary: No dysuria, hematuria, discharge, frequency, urgency, nocturia, incontinence, and urinary retention. Endocrine: No heat or cold intolerance, polydipsia, polyuria, and polyphagia. Neurological: No dizziness, extremity weakness and numbness, tremors, gait disturbance, seizures, and memory impairment. Psychiatric: Denies depression, anxiety,or insomnia. Musculoskeletal: Denies neck pain, stiffness and swelling, back pain, muscle weakness, joint pain, stiffness, swelling, or limited range of motion. Skin: No rashes, itching, skin lesion, changes in hair, nail, skin texture and breast. Hematologic/Lymphatic: Denies easy bruising, bleeding tendencies, or lymph node enlargement. Objective vital signs Vital Sign Date Time Temp Pulse Resp B/P (MAP) Pulse Ox O2 Delivery O2 Flow Rate FiO2 10/06/25 18:11 100 17 137/88 10/06/25 15:17 97.6 94 97.6 10/06/25 15:13 Nasal Cannula* 2 28 Total Intake and Output 10/05/25 10/05/25 10/06/25 15:00 23:00 07:00 Intake Total 100 ml 1580 ml Balance 100 ml 1580 ml medications Current Medications Medications Dose Ordered Sig/Tao Route Start Time Stop Time Status Last Admin Dose Admin Sodium Chloride 1,000 ml @ 120 mls/hr Q8H20M IV 10/05/25 11:15 Hold 10/06/25 02:16 120 MLS/HR Acetaminophen/ Hydrocodone Bitart 1 tab Q4HP PRN PO 10/05/25 11:15 10/05/25 19:46 1 TAB Docusate Sodium 100 mg BID PO 10/05/25 22:00 Acetaminophen 650 mg Q6HP PRN PO 10/05/25 11:15 10/05/25 16:26 650 MG Morphine Sulfate 2 mg Q4HPRN PRN IV 10/05/25 11:15 Hold 10/06/25 02:16 2 MG Ceftriaxone Sodium 50 ml @ 100 mls/hr DAILY@09 IV 10/06/25 09:00 Hold Potassium Chloride/Dextrose/ Sod Cl 1,000 ml @ 120 mls/hr Q8H20M IV 10/06/25 10:00 10/06/25 10:19 120 MLS/HR Ceftriaxone Sodium/Dextrose 50 ml @ 50 mls/hr DAILY IV 10/06/25 10:00 10/06/25 10:20 50 MLS/HR Metronidazole 100 ml @ 100 mls/hr Q8HR IV 10/06/25 14:00 10/06/25 15:57 100 MLS/HR Morphine Sulfate 1 mg Q3HP PRN IV 10/06/25 09:27 10/06/25 18:11 1 MG Ondansetron HCl 4 mg Q4HPRN PRN IV 10/06/25 08:30 Pantoprazole Sodium 40 mg DAILY IV 10/06/25 10:00 10/06/25 09:51 40 MG Examination General Appearance: Alert, Oriented X3, Cooperative, No acute distress HEENT: Atraumatic, PERRLA, EOMI, Mucous membrane moist/pink Respiratory: Clear to auscultation, Normal air movement Cardiovascular: Regular rate, Normal S1, Normal S2, No murmurs, no chest wall tenderness Abdominal: Tenderness in the in the right upper quadrant Extremities: No clubbing, No cyanosis, No edema, Normal pulses, No tenderness/swelling Skin: No rashes, No breakdown, No significant lesion Neuro: Normal gait, Normal speech, Strength at 5/5 X4 ext, Normal tone, Sensation intact, Cranial nerves 3-12 NL, Reflexes 2+ Psych/Mental Status: Mental status NL, Mood NL laboratory and microbiology Laboratory Tests 10/06/25 03:47 Test 10/06/25 03:47 Range/Units Serum Glucose 113 H 74-106 mg/dL Microbiology Date/Time Source Procedure Growth Status 10/06/25 08:09 Other Gram Stain - Final Resulted 10/06/25 08:09 Other Anaerobic Culture Pending Resulted 10/06/25 08:09 Other Aerobic Culture Pending Resulted 10/05/25 10:34 Blood Blood Culture - Preliminary NO GROWTH AFTER 24 HOURS OF INCUBATION. Resulted Problem List/Assessment/Plan Problem List/Assessment/Plan Assessment and plan Acute cholecystitis Sepsis due to above Surgery consult Laparoscopic cholecystectomy NPO Gallbladder ultrasound IV antibiotics Pain management Morphine for severe pain [place] for moderate pain Tylenol for mild pain Antiemetic Gallbladder ultrasound CT abdomen Lipase Hyperglycemia, type 2 diabetes mellitus ruled out Follow blood glucose levels Hemoglobin A1c 5.2 Hepatic steatosis, probably due to NAFLD Follow up with PCP on discharge Colonic diverticulosis without diverticulitis Stool softeners if needed No intervention required if no active infection DIET: NPO GI PROPHYLAXIS:: Protonix CODE STATUS: Goal of care full code DISPOSITION: Med/surge RECONCILED HOME MEDS: None PCP: Does not have one Patient's status and plan discussed with the patient. Case discussed with Dr. Larsen Plan discussed with: Patient My Orders My Orders Orders - CALIXTO WILSON Procedure Category Date Status Time Complete Blood Count LAB 10/07/25 Verified 04:00 Comprehensive LAB 10/07/25 Verified Metabolic Panel 04:00 Date of Service: Oct 06, 2025 Billing Provider: CALIXTO WILSON Common Visit Codes: [id number] INP/OBS CARE(HIGH) CALIXTO WILSON Oct 06, 2025 18:26
[2025-10-07] VITALS (7 sets, daily range): BP systolic 119–136; BP diastolic 69–88; PULSE 71–89; RESP 18–20; TEMP 98–98.4; O2SAT 95–97
[2025-10-07 07:04] LABS: Hematocrit 43.4 % (41.0-53.0); Hemoglobin 14.9 g/dL (13.5-17.5); Mean Corpuscular Hemoglobin 32.5 pg (28.0-32.0); Mean Corpuscular Volume 94.5 fL (80.0-100.0); Nucleated Red Blood Cells % 0.0 %
[2025-10-07 07:37] LABS: Alanine Aminotransferase 33 U/L (7-40); Albumin 4.5 g/dL (3.2-4.8); Alkaline Phosphatase 94 U/L (46-116); Anion Gap 11 (5-15); BUN/Creatinine Ratio 10.7 (10.0-20.0); Bilirubin, Total 0.6 mg/dL (0.2-1.0); Blood Urea Nitrogen 9 mg/dL (9-23); Calcium 9.6 mg/dL (8.7-10.4); Carbon Dioxide 27 mmol/L (20-31); Chloride 101 mmol/L (98-107); Potassium 3.6 mmol/L (3.5-5.1); Sodium 139 mmol/L (136-145); Total Protein 7.8 g/dL (5.7-8.2)
[2025-10-07 07:41] LABS: Glucose 107 mg/dL (74-106)
--- NOTE | 2025-10-07 12:04 | DVHPN2 ---
Subjective Date Seen: Oct 07, 2025 Post op day Post op day: 1 Nursing reports: No new complaints General: Normal HNT: Normal Cardiovascular: Normal Respiratory: Normal Gastrointestinal: Abdominal Pain Genitourinary: Normal Musculoskeletal: Normal Neurological: Normal Objective Vitals Vital Sign Date Time Temp Pulse Resp B/P (MAP) Pulse Ox O2 Delivery O2 Flow Rate FiO2 10/07/25 08:54 98.0 86 18 129/81 (97) 96 98.0 10/07/25 08:15 Nasal Cannula* 3 32 Total Intake and Output 10/06/25 10/06/25 10/07/25 15:00 23:00 07:00 Intake Total 310 ml 350 ml Output Total 290 ml 450 ml Balance -290 ml 310 ml -100 ml Medications Current Medications Medications Dose Ordered Sig/Tao Route Start Time Stop Time Status Last Admin Dose Admin Sodium Chloride 1,000 ml @ 120 mls/hr Q8H20M IV 10/05/25 11:15 Hold 10/06/25 02:16 120 MLS/HR Acetaminophen/ Hydrocodone Bitart 1 tab Q4HP PRN PO 10/05/25 11:15 10/05/25 19:46 1 TAB Docusate Sodium 100 mg BID PO 10/05/25 22:00 10/07/25 10:10 100 MG Acetaminophen 650 mg Q6HP PRN PO 10/05/25 11:15 10/05/25 16:26 650 MG Morphine Sulfate 2 mg Q4HPRN PRN IV 10/05/25 11:15 Hold 10/06/25 02:16 2 MG Potassium Chloride/Dextrose/ Sod Cl 1,000 ml @ 120 mls/hr Q8H20M IV 10/06/25 10:00 10/06/25 18:27 120 MLS/HR Ceftriaxone Sodium/Dextrose 50 ml @ 50 mls/hr DAILY IV 10/06/25 10:00 10/07/25 10:13 50 MLS/HR Metronidazole 100 ml @ 100 mls/hr Q8HR IV 10/06/25 14:00 10/07/25 05:47 100 MLS/HR Morphine Sulfate 1 mg Q3HP PRN IV 10/06/25 09:27 10/07/25 02:56 1 MG Ondansetron HCl 4 mg Q4HPRN PRN IV 10/06/25 08:30 Pantoprazole Sodium 40 mg DAILY IV 10/06/25 10:00 10/07/25 10:10 40 MG General: Normal, Well developed Head/Eyes: Normal ENT: Normal Neck: Normal, Supple Lungs: Normal, Normal inspection Cardiovascular: Normal, Regular rate and rhythm Musculoskeletal: Normal Extremities: Normal Skin: Normal, Normal inspection Neurological: Normal Labs and Microbiology Laboratory Tests 10/07/25 06:24 Test 10/07/25 06:24 Range/Units Serum Glucose 107 H 74-106 mg/dL Ass/Plan Problem List Assessment and plan Acute cholecystitis Sepsis due to above Surgery consult Laparoscopic cholecystectomy NPO Gallbladder ultrasound IV antibiotics Pain management Morphine for severe pain [place] for moderate pain Tylenol for mild pain Antiemetic Gallbladder ultrasound CT abdomen Lipase Hyperglycemia, type 2 diabetes mellitus ruled out Follow blood glucose levels Hemoglobin A1c 5.2 Hepatic steatosis, probably due to NAFLD Follow up with PCP on discharge Colonic diverticulosis without diverticulitis Stool softeners if needed No intervention required if no active infection DIET: NPO GI PROPHYLAXIS:: Protonix CODE STATUS: Goal of care full code DISPOSITION: Med/surge RECONCILED HOME MEDS: None PCP: Does not have one Patient's status and plan discussed with the patient. Case discussed with Dr. Larsen Assessment/Plan patient complaint of abdominal pain , abdomen slightly distended not passing gas, nausea abdomen appropriately tender to palpation wound clean dry, and intact Plan: Patient to ambulate NPO until patient passes gas Plan discussed with Dr. Camargo, patient Visit Coding Surgery Date of Service if different f: Oct 07, 2025 Billing Provider: KHUSHI CAMARGO MD Surgery Visit Codes: [id number] INP/OBS CARE(HIGH) ANTON KIRK [employer] Oct 07, 2025 12:04
[2025-10-08] VITALS (7 sets, daily range): BP systolic 107–122; BP diastolic 70–77; PULSE 65–74; RESP 16–20; TEMP 97.9–98.4; O2SAT 97–99
[2025-10-08 06:55] LABS: Hematocrit 39.8 % (41.0-53.0); Hemoglobin 13.6 g/dL (13.5-17.5); Mean Corpuscular Hemoglobin 32.4 pg (28.0-32.0); Mean Corpuscular Volume 94.5 fL (80.0-100.0); Nucleated Red Blood Cells % 0.0 %
[2025-10-08 07:05] LABS: Alkaline Phosphatase 87 U/L (46-116); Anion Gap 7 (5-15); BUN/Creatinine Ratio 14.3 (10.0-20.0); Blood Urea Nitrogen 10 mg/dL (9-23); Carbon Dioxide 28 mmol/L (20-31); Chloride 105 mmol/L (98-107); Glucose 106 mg/dL (74-106); Potassium 3.9 mmol/L (3.5-5.1); Sodium 140 mmol/L (136-145); Total Protein 6.6 g/dL (5.7-8.2)
[2025-10-08 07:07] LABS: Albumin 3.6 g/dL (3.2-4.8); Bilirubin, Total 0.6 mg/dL (0.2-1.0)
[2025-10-08 07:12] LABS: Alanine Aminotransferase 56 U/L (7-40); Calcium 8.6 mg/dL (8.7-10.4)
--- NOTE | 2025-10-08 16:00 | DVHPNRES ---
Progress Note Date Seen: Oct 08, 2025 Resident Creating Document: CALIXTO WILSON Medical Necessity Reason Pt with a Central, PICC or Fol: No Subjective Review of Systems Patient seen at bedside. Complaints of pain in the surgical site. On morphine. Added scheduled dose of acetaminophen for the pain. This is a 54-year-old male with no past medical history presented to the hospital with complaints of abdominal pain since last Sunday. Patient complains of associated fever. He denies any vomiting. Patient complains that he has not had a bowel movement since Sunday. He rates the pain 8 on 10 in intensity, sharp in quality, radiating diffusely in the abdomen, increasing on moving. He says it is associated with shortness of Breath. PMHx: None as per patient PSHx: Dental procedure 8 days back Family history: Nonrelevant Social history: Denies smoking or illicit drug use, occasional alcohol use Home medication: Denies taking any home medications Allergic history: No known allergies General: patient denies fever, fatigue, weaknes, sweating, any recent changes in appetite and weight HEENT: No headaches, visiual changes, hearing loss, tinnitus, nasal congestion and discharge, and sore throat. Cardiovascular: Denies chest pain, palpitations, dyspnea on exertion, orthopnea, or claudication. Respiratory: No cough, and wheezing. Gastrointestinal: Complains of abdominal pain Genitourinary: No dysuria, hematuria, discharge, frequency, urgency, nocturia, incontinence, and urinary retention. Endocrine: No heat or cold intolerance, polydipsia, polyuria, and polyphagia. Neurological: No dizziness, extremity weakness and numbness, tremors, gait disturbance, seizures, and memory impairment. Psychiatric: Denies depression, anxiety,or insomnia. Musculoskeletal: Denies neck pain, stiffness and swelling, back pain, muscle weakness, joint pain, stiffness, swelling, or limited range of motion. Skin: No rashes, itching, skin lesion, changes in hair, nail, skin texture and breast. Hematologic/Lymphatic: Denies easy bruising, bleeding tendencies, or lymph node enlargement. Objective vital signs Vital Sign Date Time Temp Pulse Resp B/P (MAP) Pulse Ox O2 Delivery O2 Flow Rate FiO2 10/08/25 12:42 98.0 72 16 122/77 (92) 99 98.0 10/08/25 08:00 Nasal Cannula* 4 36 Total Intake and Output 10/07/25 10/07/25 10/08/25 15:00 23:00 07:00 Intake Total 150 ml 1230 ml 1000 ml Output Total 1050 ml 50 ml Balance -900 ml 1180 ml 1000 ml medications Current Medications Medications Dose Ordered Sig/Tao Route Start Time Stop Time Status Last Admin Dose Admin Sodium Chloride 1,000 ml @ 120 mls/hr Q8H20M IV 10/05/25 11:15 Hold 10/06/25 02:16 120 MLS/HR Acetaminophen/ Hydrocodone Bitart 1 tab Q4HP PRN PO 10/05/25 11:15 10/05/25 19:46 1 TAB Docusate Sodium 100 mg BID PO 10/05/25 22:00 10/08/25 10:49 100 MG Acetaminophen 650 mg Q6HP PRN PO 10/05/25 11:15 10/05/25 16:26 650 MG Morphine Sulfate 2 mg Q4HPRN PRN IV 10/05/25 11:15 Hold 10/06/25 02:16 2 MG Potassium Chloride/Dextrose/ Sod Cl 1,000 ml @ 120 mls/hr Q8H20M IV 10/06/25 10:00 10/08/25 04:19 120 MLS/HR Ceftriaxone Sodium/Dextrose 50 ml @ 50 mls/hr DAILY IV 10/06/25 10:00 10/08/25 10:50 50 MLS/HR Metronidazole 100 ml @ 100 mls/hr Q8HR IV 10/06/25 14:00 10/08/25 14:05 100 MLS/HR Morphine Sulfate 1 mg Q3HP PRN IV 10/06/25 09:27 10/08/25 11:04 1 MG Ondansetron HCl 4 mg Q4HPRN PRN IV 10/06/25 08:30 Pantoprazole Sodium 40 mg DAILY IV 10/06/25 10:00 10/08/25 10:50 40 MG Examination General Appearance: Alert, Oriented X3, Cooperative, No acute distress HEENT: Atraumatic, PERRLA, EOMI, Mucous membrane moist/pink Respiratory: Clear to auscultation, Normal air movement Cardiovascular: Regular rate, Normal S1, Normal S2, No murmurs, no chest wall tenderness Abdominal: Tenderness in the in the right upper quadrant Extremities: No clubbing, No cyanosis, No edema, Normal pulses, No tenderness/swelling Skin: No rashes, No breakdown, No significant lesion Neuro: Normal gait, Normal speech, Strength at 5/5 X4 ext, Normal tone, Sensation intact, Cranial nerves 3-12 NL, Reflexes 2+ Psych/Mental Status: Mental status NL, Mood NL laboratory and microbiology Laboratory Tests 10/08/25 06:01 Test 10/08/25 06:01 Range/Units Serum Glucose 106 74-106 mg/dL Microbiology Date/Time Source Procedure Growth Status 10/06/25 08:09 Other Gram Stain - Final Resulted 10/06/25 08:09 Other Anaerobic Culture - Preliminary No growth Resulted 10/06/25 08:09 Other Aerobic Culture - Preliminary Resulted 10/05/25 10:34 Blood Blood Culture - Preliminary NO GROWTH AFTER 72 HOURS OF INCUBATION. Resulted Problem List/Assessment/Plan Problem List/Assessment/Plan Assessment and plan Acute cholecystitis Sepsis due to above Surgery consult Laparoscopic cholecystectomy NPO Gallbladder ultrasound IV antibiotics Pain management Morphine for severe pain [place] for moderate pain Tylenol for mild pain Antiemetic Gallbladder ultrasound CT abdomen Lipase Hyperglycemia, type 2 diabetes mellitus ruled out Follow blood glucose levels Hemoglobin A1c 5.2 Hepatic steatosis, probably due to NAFLD Follow up with PCP on discharge Colonic diverticulosis without diverticulitis Stool softeners if needed No intervention required if no active infection DIET: NPO GI PROPHYLAXIS:: Protonix CODE STATUS: Goal of care full code DISPOSITION: Med/surge RECONCILED HOME MEDS: None PCP: Does not have one Patient's status and plan discussed with the patient. Case discussed with Dr. Larsen Plan discussed with: Patient Date of Service: Oct 08, 2025 Billing Provider: ASHA WILKERSON MD Common Visit Codes: [id number] INP/OBS CARE(HIGH) CALIXTO WILSON RESIDENT Oct 08, 2025 16:00
[2025-10-09] VITALS (7 sets, daily range): BP systolic 112–130; BP diastolic 65–77; PULSE 61–89; RESP 16–20; TEMP 97.7–98.4; O2SAT 94–100
[2025-10-09 06:54] LABS: Hematocrit 44.7 % (41.0-53.0); Hemoglobin 15.3 g/dL (13.5-17.5); Mean Corpuscular Hemoglobin 33.2 pg (28.0-32.0); Mean Corpuscular Volume 96.7 fL (80.0-100.0); Nucleated Red Blood Cells % 0.1 %
[2025-10-09 09:56] LABS: Anion Gap 12 (5-15); BUN/Creatinine Ratio 23.9 (10.0-20.0)
[2025-10-09 09:59] LABS: Alanine Aminotransferase 52 U/L (7-40); Albumin 4.0 g/dL (3.2-4.8); Alkaline Phosphatase 101 U/L (46-116); Bilirubin, Total 0.9 mg/dL (0.2-1.0); Blood Urea Nitrogen 16 mg/dL (9-23); Calcium 9.1 mg/dL (8.7-10.4); Carbon Dioxide 23 mmol/L (20-31); Chloride 105 mmol/L (98-107); Glucose 76 mg/dL (74-106); Potassium 3.7 mmol/L (3.5-5.1); Sodium 140 mmol/L (136-145); Total Protein 7.0 g/dL (5.7-8.2)
--- NOTE | 2025-10-09 14:45 | DVHPN2 ---
Subjective Date Seen: Oct 09, 2025 Post op day Post op day: 3 Nursing reports: No new complaints General: Normal HNT: Normal Cardiovascular: Normal Respiratory: Normal Gastrointestinal: Abdominal Pain Genitourinary: Normal Musculoskeletal: Normal Neurological: Normal Objective Vitals Vital Sign Date Time Temp Pulse Resp B/P (MAP) Pulse Ox O2 Delivery O2 Flow Rate FiO2 10/09/25 12:39 97.9 89 16 130/77 (94) 94 97.9 10/09/25 08:00 Room Air* 0 21 Total Intake and Output 10/08/25 10/08/25 10/09/25 14:59 22:59 06:59 Intake Total 150 ml 320 ml 0 ml Output Total 350 ml 350 ml Balance 150 ml -30 ml -350 ml Medications Current Medications Medications Dose Ordered Sig/Tao Route Start Time Stop Time Status Last Admin Dose Admin Sodium Chloride 1,000 ml @ 120 mls/hr Q8H20M IV 10/05/25 11:15 Hold 10/06/25 02:16 120 MLS/HR Acetaminophen/ Hydrocodone Bitart 1 tab Q4HP PRN PO 10/05/25 11:15 10/05/25 19:46 1 TAB Docusate Sodium 100 mg BID PO 10/05/25 22:00 10/08/25 10:49 100 MG Acetaminophen 650 mg Q6HP PRN PO 10/05/25 11:15 10/05/25 16:26 650 MG Morphine Sulfate 2 mg Q4HPRN PRN IV 10/05/25 11:15 Hold 10/06/25 02:16 2 MG Potassium Chloride/Dextrose/ Sod Cl 1,000 ml @ 120 mls/hr Q8H20M IV 10/06/25 10:00 10/09/25 06:00 120 MLS/HR Ceftriaxone Sodium/Dextrose 50 ml @ 50 mls/hr DAILY IV 10/06/25 10:00 10/09/25 10:24 50 MLS/HR Metronidazole 100 ml @ 100 mls/hr Q8HR IV 10/06/25 14:00 10/09/25 14:10 100 MLS/HR Morphine Sulfate 1 mg Q3HP PRN IV 10/06/25 09:27 10/08/25 11:04 1 MG Ondansetron HCl 4 mg Q4HPRN PRN IV 10/06/25 08:30 Pantoprazole Sodium 40 mg DAILY IV 10/06/25 10:00 10/09/25 10:24 40 MG General: Normal, Well developed Head/Eyes: Normal ENT: Normal Neck: Normal, Supple Lungs: Normal, Normal inspection Cardiovascular: Normal, Regular rate and rhythm Abdominal: Normal, Soft Musculoskeletal: Normal Extremities: Normal Skin: Normal, Normal inspection Neurological: Normal Labs and Microbiology Laboratory Tests 10/09/25 09:05 10/09/25 04:49 Test 10/09/25 09:05 Range/Units Serum Glucose 76 74-106 mg/dL Ass/Plan Labs and/or images reviewed: Labs reviewed by me Problem List Assessment and plan Acute cholecystitis Sepsis due to above Surgery consult Laparoscopic cholecystectomy NPO Gallbladder ultrasound IV antibiotics Pain management Morphine for severe pain [place] for moderate pain Tylenol for mild pain Antiemetic Gallbladder ultrasound CT abdomen Lipase Hyperglycemia, type 2 diabetes mellitus ruled out Follow blood glucose levels Hemoglobin A1c 5.2 Hepatic steatosis, probably due to NAFLD Follow up with PCP on discharge Colonic diverticulosis without diverticulitis Stool softeners if needed No intervention required if no active infection DIET: NPO GI PROPHYLAXIS:: Protonix CODE STATUS: Goal of care full code DISPOSITION: Med/surge RECONCILED HOME MEDS: None PCP: Does not have one Patient's status and plan discussed with the patient. Case discussed with Dr. Larsen Assessment/Plan patient complaint of abdominal pain , abdomen slightly distended not passing gas, nausea abdomen appropriately tender to palpation wound clean dry, and intact Plan: Patient to ambulate NPO until patient passes gas 10/09/25 patient complaint of right side abdominal pain at RAISA drain site passing gas, appropriately tender denies nause or vomiting RAISA drain serous sanguinous Plan: ok to discharge per surgery point of view follow up in surgery clinic in 1 week advance diet as tolerated empty drain daily and record output may shower Prognosis: Excellent Plan discussed with patient, Dr. Camargo Visit Coding Surgery Date of Service if different f: Oct 09, 2025 Billing Provider: KHUSHI CAMARGO MD Surgery Visit Codes: [id number] INP/OBS CARE(HIGH) ANTON KIRK NP Oct 09, 2025 14:45
[2025-10-09] MEDS ORDERED: AUG875T PO (15:16)
--- NOTE | 2025-10-09 16:36 | DVHDSRES ---
Discharge Summary Date of Admission Resident Creating Document: CALIXTO WILSON RESIDENT Oct 05, 2025 at 11:10 Date of Discharge: Oct 09, 2025 Labs/Diagnostic Data: Laboratory Results Test 10/09/25 09:05 10/09/25 04:49 10/06/25 00:55 10/05/25 12:58 Sodium Level 140 mmol/L (136-145) Potassium Level 3.7 mmol/L (3.5-5.1) Chloride Level 105 mmol/L (98-107) Carbon Dioxide Level 23 mmol/L (20-31) Anion Gap 12 (5-15) Blood Urea Nitrogen 16 mg/dL (9-23) Creatinine 0.67 mg/dL (0.700-1.30) Glomerular Filtration Rate Calc 112 mL/min (>90) BUN/Creatinine Ratio 23.9 (10.0-20.0) Serum Glucose 76 mg/dL (74-106) Calcium Level 9.1 mg/dL (8.7-10.4) Total Bilirubin 0.9 mg/dL (0.2-1.0) Aspartate Amino Transferase (AST) 32 U/L (13-40) Alanine Aminotransferase (ALT) 52 U/L (7-40) Alkaline Phosphatase 101 U/L (46-116) Total Protein 7.0 g/dL (5.7-8.2) Albumin 4.0 g/dL (3.2-4.8) White Blood Count 9.9 10^3/uL (4.4-10.8) Red Blood Count 4.62 10^6/uL (4.5-5.90) Hemoglobin 15.3 g/dL (13.5-17.5) Hematocrit 44.7 % (41.0-53.0) Mean Corpuscular Volume 96.7 fL (80.0-100.0) Mean Corpuscular Hemoglobin 33.2 pg (28.0-32.0) Mean Corpuscular Hemoglobin Concent 34.3 g/dL (32.0-36.0) Red Cell Distribution Width 12.5 % (11.8-14.3) Platelet Count 265 10^3/uL (140-450) Mean Platelet Volume 7.1 fL (6.9-10.8) Neutrophils (%) (Auto) 74.9 % (37.0-80.0) Lymphocytes (%) (Auto) 15.7 % (10.0-50.0) Monocytes (%) (Auto) 7.7 % (0.0-12.0) Eosinophils (%) (Auto) 1.3 % (0.0-7.0) Basophils (%) (Auto) 0.4 % (0.0-2.0) Neutrophils # (Auto) 7.4 10 ^3/uL (1.6-8.6) Lymphocytes # (Auto) 1.6 10 ^3/uL (0.4-5.4) Monocytes # (Auto) 0.8 10 ^3/uL (0-1.3) Eosinophils # (Auto) 0.1 10 ^3/uL (0-0.8) Basophils # (Auto) 0 10 ^3/uL (0-0.2) Nucleated Red Blood Cells 0.1 % Urine Color Light-yellow (Yellow) Urine Clarity Clear (Clear) Urine pH 6.5 (5.0-9.0) Urine Specific [place] 1.015 (1.001-1.035) Urine Protein Negative (Negative) Urine Ketones 1+ (Negative) Urine Blood Negative /uL (Negative) Urine Nitrite Negative (Negative) Urine Bilirubin Negative (Negative) Urine Urobilinogen Normal mg/dL (Negative) Urine Leukocyte Esterase Negative /uL (Negative) Urine RBC 1 /hpf (0 - 3) Urine Microscopic WBC 1 /HPF (0-3) Urine Squamous Epithelial Cells None seen /hpf (<5) Urine Bacteria None seen /hpf (None Seen) Urine Glucose Normal mg/dL (Normal) Prothrombin Time 11.2 sec (9.3-11.8) Prothrombin Time INR 1.06 (0.9-1.15) Activated Partial Thromboplast Time 26.5 SEC (24.5-34.5) Test 10/05/25 10:25 10/05/25 07:40 Lactic Acid Level 1.0 mmol/L (0.4-2.0) Hemoglobin A1c 5.2 % A1C (<5.7) Lipase 34 U/L (12-53) Other Laboratory Tests 10/09/25 09:05 10/09/25 04:49 Brief Hx & Hospital Course: This is a 54-year-old male with no past medical history presented to the hospital with complaints of abdominal pain since last Sunday. Patient complained of associated fever. He denied any vomiting. Patient complained that he has not had a bowel movement since Sunday. He rated the pain 8 on 10 in intensity, sharp in quality, radiating diffusely in the abdomen, increasing on moving. He said it is associated with shortness of Breath. patient was septic on admission. Bilirubin levels were elevated, blood cultures showed no growth. Imaging studies revealed cholecystitis. Patient underwent laparoscopic cholecystectomy. Patient was treated with morphine and other pain management post surgery, a drain was left in. During the course of the hospitalization, the patient was better clinically and is hence being discharged and advised to visit surgery Clinic in 1 week, empty drain daily and record output. Discharge plan Follow up with PCP in 7 days Follow up with surgery Clinic in 7 days empty drain daily and record output may shower Condition at Discharge: Fair Final Diagnosis/Problems List S/P Laparoscopic cholecystectomy Acute cholecystitis Sepsis due to above Hyperglycemia, type 2 diabetes mellitus ruled out Hepatic steatosis, probably due to NAFLD Colonic diverticulosis without diverticulitis Discharge Disposition: Home Discharge Instruct/Medications Diet: Regular Activity: No Restrictions, As Tolerated Follow Up/Referral: Follow up with the PCP within 1 week of the discharge. Follow up with the PCP within 1 week of the discharge. Medications: Augmentin b.i.d. for 4 days May use Tylenol or ibuprofen as needed for pain for 7 days Scheduled Amoxicillin & Pot Clavulanate (Augmentin Tablet), 875 MG PO BID Scheduled PRN Ibuprofen Micronized (Ibuprofen), 1 TAB PO Q8HPRN PRN for pain, (Reported) Discharge Statement: "Patient was advised to return to the ER or call 911 if any headaches, dizziness, shortness of breath, chest pain, abdominal pain, bleeding, fevers, or worsening of medical condition. Patient was counseled about treatment plan, medications, possible side effects, patientverbalized understanding. All questions were answered to the best of my ability. This discharge took greater then 30 minutes in planning, reviewing documentation, counseling the patient, and discussing with other team members." ASSESSMENT ASSESSMENT Assessment Cholecystitis Date of Service: Oct 09, 2025 Billing Provider: ASHA WILKERSON MD Common Visit Codes: [id number] INP/OBS CARE(HIGH) CALIXTO WLISON RESIDENT Oct 09, 2025 16:36
== END 2025-10-09 18:10 | disposition home or self-care (01) | DRG 710 ==
LOC: ER 07:04 → OVERFLOW 11:10 → WEST WING 10-06 15:15
PROVIDERS: ADMIT Student in an Organized Health Care Education/Training Program; ATTEND Student in an Organized Health Care Education/Training Program
PROC: 0FT44ZZ Resection of Gallbladder, Percutaneous Endoscopic Approach (ICD-10-PCS; principal; 2025-10-06 07:35)
DX: A41.9 Sepsis, unspecified organism (principal); K82.A1 Gangrene of gallbladder in cholecystitis; K80.00 Calculus of gallbladder with acute cholecystitis without obstruction; K76.0 Fatty (change of) liver, not elsewhere classified; E66.01 Morbid (severe) obesity due to excess calories; R73.9 Hyperglycemia, unspecified; K57.30 Diverticulosis of large intestine without perforation or abscess without bleeding; K82.8 Other specified diseases of gallbladder; Z82.49 Family history of ischemic heart disease and other diseases of the circulatory system; Z68.29 Body mass index [BMI] 29.0-29.9, adult
CPT/HCPCS: 36415; 71045; 74177; 76705; 80053; 81001; 82247; 83036; 83605; 83690; 85025; 85610; 85730; 86850; 86900; 86901; 87040; 87070; 87075; 87077; 87186; 87205; 93005; 96365; 96375; 99291; G0378; J1100; J2250; J2405; J2470; J3490